=== PATIENT | female | born 1930 | race Caucasian/White ===

== ENCOUNTER 2017-04-17 11:41 | Observation (INO) ==
--- NOTE | 2017-04-17 11:54 | Emergency Department Note ---
Disposition Clinical Impression: Transient cerebral ischemia Disposition: Admitted As Inpatient Referrals: NO,PCP [Non-Partnered Physician] - Forms: ED Satisfaction Letter Neuro HPI - General Chief Complaint: ED Neuro Symptoms/Deficit Stated Complaint: slsurred speech Time Seen by Provider: 04/17/17 11:52 Source: patient Mode of arrival: EMS Limitations: no limitations Nursing Notes Reviewed: Yes Vital Signs Reviewed: Yes - History of Present Illness HPI Narrative: Patient states she has been recently treated for UTI with Cipro as she took her medication today she felt numbness in her face arms and legs she felt like she had some difficulty speaking. She called her doctor in the office opened and they recommended coming to the ER for evaluation for a stroke. The patient states the difficulty with speech has resolved but she still feels like her arms and legs are numb. She also complains of some mild nausea Quality: weakness, numbness Improves with: time Context: sudden onset Associated symptoms: Reports: loss of appetite. Denies: confusion, chest pain, fever/chills, headaches, shortness of breath Treatments Prior to Arrival: none - Related Data Home Medications: Home Medications Medication Instructions Recorded Confirmed Acetaminophen [Tylenol] 325 mg PO Q6HR PRN 04/14/16 04/14/16 Carvedilol [Coreg] 6.25 mg PO BIDWM 04/14/16 04/14/16 Ezetimibe [Zetia] 10 mg PO DAILY 04/14/16 04/14/16 Glimepiride [Amaryl] 2 mg PO DAILY 04/14/16 04/14/16 Irbesartan [Avapro] 150 mg PO DAILY 04/14/16 04/14/16 Isosorbide MONOnitrate (24 HR) 60 mg PO DAILY 04/14/16 04/14/16 [Imdur] Lansoprazole [Prevacid] 30 mg PO DAILY 04/14/16 04/14/16 SitaGLIPtin [Januvia] 100 mg PO DAILY 04/14/16 04/14/16 Travoprost [Travatan Z] 5 ml OP DAILY 04/14/16 04/14/16 Previous Rx's Medication Instructions Recorded Oxazepam [Serax] 15 mg PO TID #21 capsule 04/21/16 Zolpidem [Ambien] 5 mg PO HS PRN #7 tablet 04/21/16 Allergies/Adverse Reactions: Allergies Allergy/AdvReac Type Severity Reaction Status Date / Time Insulins Allergy See Verified 04/14/16 08:58 Comments Mhzfgeo-Zlh-Tfe Reductase Allergy Muscle Pain Verified 04/14/16 08:58 Inhibitor [Statins] acetaminophen [From Vicodin] AdvReac Nausea Verified 04/14/16 08:58 aspirin AdvReac See Verified 04/14/16 08:58 Comments clopidogrel [From Plavix] AdvReac See Verified 04/14/16 08:58 Comments hydrocodone [From Vicodin] AdvReac Nausea Verified 04/14/16 08:58 levofloxacin [From Levaquin] AdvReac Dizziness Verified 04/14/16 08:58 rivastigmine [From Exelon] AdvReac Nausea Verified 04/14/16 08:58 All systems ED: reviewed and negative except as stated. Gastrointestinal: Reports: nausea. Denies: abdominal pain, vomiting, diarrhea Neurological: Reports: numbness (Bilateral arms and legs), other (Patient had some slurred speech that she noticed earlier today but has resolved) Past Medical History - Past Medical History Source: patient, old records reviewed, nursing notes reviewed Medical history: Reports: diabetes, hypertension, TIA Surgical history: Reports: cataract, hysterectomy Psychiatric history: Reports: anxiety, depression - Social History Smoking Status: Never smoker Smokeless Tobacco Status: No Alcohol use: Reports: none Drug use: Reports: none Physical Exam - General Limitations: no limitations General appearance: alert, in no apparent distress - Head Head exam: atraumatic, normocephalic, normal inspection - Eye Eye exam: Present: normal appearance, PERRL, EOMI - Expanded Eye Exam Pupils: Left: reactive - ENT ENT exam: normal exam, normal oropharynx, mucous membranes moist - Expanded ENT Exam External ear exam: Present: normal external inspection Mouth exam: Present: normal external inspection Teeth exam: Present: normal inspection Throat exam: Present: normal inspection - Neck Neck exam: Present: normal inspection, full ROM, trachea midline - Chest Chest inspection: Present: normal inspection, symmetric chest wall rise - Respiratory Respiratory exam: Present: normal lung sounds bilaterally - Cardiovascular Cardiovascular exam: Present: regular rate, normal rhythm, normal heart sounds - Abdominal Exam Abdominal exam: Present: soft, Non-Tender. Absent: tenderness, distention, guarding, rebound, rigidity - Extremities Exam Extremities exam: Present: normal inspection, full ROM. Absent: tenderness, pedal edema - Expanded Upper Extremity Exam Shoulder exam: Present: normal inspection, full ROM Arm exam: Present: normal inspection, full ROM Elbow exam: Present: normal inspection, full ROM Forearm/Wrist exam: Present: normal inspection, full ROM Hand exam: Present: normal inspection, full ROM Vascular exam: Normal: capillary refill, radial pulse - Expanded Lower Extremity Exam Hip/Pelvis exam: Present: normal inspection, full ROM Upper leg exam: Present: normal inspection, full ROM Knee exam: Present: normal inspection, full ROM Lower leg exam: Present: normal inspection, full ROM Ankle exam: Present: normal inspection, full ROM Foot/toe exam: Present: normal inspection, full ROM Neurovascular/Tendon exam: Absent: motor deficit, sensory deficit, tendon deficit - Back Exam Back exam: Present: normal inspection, full ROM. Absent: tenderness - Neurological Exam Neurological exam: Present: alert, oriented X3 - Expanded Neurological Exam Patient oriented to: Present: person, place, time Coma Scale Eye Opening: Spontaneous Coma Scale Motor Response: Obeys Commands Coma Scale Verbal Response: Oriented Coma Scale Total: 15 - Psychiatric Psychiatric exam: Present: normal affect, normal mood - Skin Skin exam: Present: warm, dry, intact, normal color Course Vital Signs Temperature 98.7 F 04/17/17 12:14 Pulse Rate 102 04/17/17 12:14 Respiratory Rate 14 04/17/17 12:14 Blood Pressure 199/87 04/17/17 12:14 O2 Sat by Pulse Oximetry 96 04/17/17 12:14 Temperature 98.7 F 04/17/17 12:14 Pulse Rate 102 04/17/17 12:14 Respiratory Rate 14 04/17/17 12:14 Blood Pressure 205/93 04/17/17 12:14 O2 Sat by Pulse Oximetry 98 04/17/17 12:14 Oxygen Delivery Oxygen Delivery Room Air Neuro Symptoms/Deficit - Lab Data Result diagrams: 04/17/17 12:41 04/17/17 12:41 Lab Results 04/17/17 04/17/17 04/17/17 Range/Units 11:51 12:41 12:41 WBC 7.0 (4.3-11.1) K/mcL RBC 4.42 (3.82-4.97) M/mcL Hgb 10.5 L (11.5-15.4) g/dL Hct 33.9 L (35.3-44.9) % MCV 76.7 L (83.0-100.0) fL MCH 23.8 L (28.0-33.3) pg MCHC 31.0 L (31.6-35.5) g/dL RDW 17.0 H (11.5-14.5) % Plt Count 310 (140-400) K/mcL MPV 8.8 L (9.4-12.4) fL Immature Gran % 0.6 (0-4) % Seg Neutrophils % 81.7 % Lymphocytes % 10.0 % Monocytes % 7.0 % Eosinophils % 0.3 % Basophils % 0.4 % Neutrophils # 5.7 (1.6-8.9) K/mcL Lymphocytes # 0.7 (0.6-4.6) K/mcL Monocytes # 0.5 (0.0-1.3) K/mcL Eosinophils # 0.0 (0.0-0.6) K/mcL Basophils # 0.0 (0.0-0.2) K/mcL PT 10.9 (9.4-12.1) Seconds INR 1.0 APTT 25.6 L (26.0-36.0) Seconds Sodium (136-145) mEq/L Potassium (3.5-4.5) mEq/L Chloride (98-109) mEq/L Carbon Dioxide (19-29) mEq/L BUN (7-20) mg/dL Creatinine (0.57-1.11) mg/dL Est GFR ( Amer) (> 60) Est GFR (Non-Af Amer) (> 60) BUN/Creatinine Ratio (6-26) Glucose (70-99) mg/dL POC Glucose 198 H (58-89) Calculated Osmolality (280-300) Calcium (8.6-10.8) mg/dL Magnesium (1.6-2.6) mg/dL Troponin I (0-0.03) ng/mL TSH (0.350-4.840) mcIU/mL 04/17/17 04/17/17 Range/Units 12:41 12:41 WBC (4.3-11.1) K/mcL RBC (3.82-4.97) M/mcL Hgb (11.5-15.4) g/dL Hct (35.3-44.9) % MCV (83.0-100.0) fL MCH (28.0-33.3) pg MCHC (31.6-35.5) g/dL RDW (11.5-14.5) % Plt Count (140-400) K/mcL MPV (9.4-12.4) fL Immature Gran % (0-4) % Seg Neutrophils % % Lymphocytes % % Monocytes % % Eosinophils % % Basophils % % Neutrophils # (1.6-8.9) K/mcL Lymphocytes # (0.6-4.6) K/mcL Monocytes # (0.0-1.3) K/mcL Eosinophils # (0.0-0.6) K/mcL Basophils # (0.0-0.2) K/mcL PT (9.4-12.1) Seconds INR APTT (26.0-36.0) Seconds Sodium 132 L (136-145) mEq/L Potassium 4.7 H (3.5-4.5) mEq/L Chloride 98 (98-109) mEq/L Carbon Dioxide 21 (19-29) mEq/L BUN 18 (7-20) mg/dL Creatinine 0.83 (0.57-1.11) mg/dL Est GFR ( Amer) > 60 (> 60) Est GFR (Non-Af Amer) > 60 (> 60) BUN/Creatinine Ratio 22 (6-26) Glucose 188 H (70-99) mg/dL POC Glucose (58-89) Calculated Osmolality 281 (280-300) Calcium 9.7 (8.6-10.8) mg/dL Magnesium 1.4 L (1.6-2.6) mg/dL Troponin I 0.00 (0-0.03) ng/mL TSH 2.277 (0.350-4.840) mcIU/mL TPA Checklist - LKW: 3-4.5 hrs Add. Warnings/Precautions Patient/family understanding: The patient/family members have been counseled and understood the risk, benefit , and alternatives of treatment.
[2017-04-17 12:52] LABS: Basophils % 0.4 %; Eosinophils % 0.3 %; Hematocrit 33.9 % (35.3-44.9); Hemoglobin 10.5 g/dL (11.5-15.4); Immature Granulocytes % 0.6 % (0-4); Lymphocytes # 0.7 K/mcL (0.6-4.6); Mean Corpuscular Hemoglobin 23.8 pg (28.0-33.3); Mean Corpuscular Volume 76.7 fL (83.0-100.0); Mean Platelet Volume 8.8 fL (9.4-12.4); Monocytes # 0.5 K/mcL (0.0-1.3); Neutrophils # 5.7 K/mcL (1.6-8.9); Platelet Count 310 K/mcL (140-400); Red Blood Count 4.42 M/mcL (3.82-4.97); Segmented Neutrophils % 81.7 %
[2017-04-17 12:58] LABS: Prothrombin Time 10.9 Seconds (9.4-12.1)
[2017-04-17 13:00] LABS: Activated Partial Thrombo Time 25.6 Seconds (26.0-36.0)
[2017-04-17 13:01] LABS: BUN/Creatinine Ratio 22 (6-26); Blood Urea Nitrogen 18 mg/dL (7-20); Calcium 9.7 mg/dL (8.6-10.8); Carbon Dioxide 21 mEq/L (19-29); Chloride 98 mEq/L (98-109); Glucose 188 mg/dL (70-99); Magnesium 1.4 mg/dL (1.6-2.6); Osmolality,Calculated 281 (280-300); Potassium 4.7 mEq/L (3.5-4.5); Sodium 132 mEq/L (136-145); eGFR For African Americans > 60 (> 60); eGFR For Non-African Americans > 60 (> 60)
[2017-04-17 13:23] LABS: Thyroid Stimulating Hormone 2.277 mcIU/mL (0.350-4.840)
[2017-04-17 14:25] LABS: Bilirubin,Urine Negative (Negative); Blood,Urine Negative (Negative); Clarity,Urine Clear (Clear); Color,Urine Yellow (Yellow); Glucose,Urine (UA) 250 mg/dL (Normal); Ketones,Urine Trace mg/dL (Negative); Leukocyte Esterase,Urine Negative (Negative); Nitrite,Urine Negative (Negative); Protein,Urine Negative (Neg-Trace); Specific Gravity,Urine 1.011 (1.010-1.025); Urobilinogen,Urine Normal (Normal)
[2017-04-17] MEDS ORDERED: amLODIPine 5 MG TABLET PO STA (14:37)
[2017-04-17] MEDS ORDERED: Naloxone 0.4 MG/ML INJ IVP PRN (17:39)
--- NOTE | 2017-04-17 18:15 | Internal Med History&Physical ---
Date of Encounter: 04/17/17 Time of Encounter: 18:04 Assessment and Plan (1) Transient cerebral ischemia Current visit: Yes Status: Suspected 1 patient had sudden onset of numbness and tingling in hands bilaterally and left side of face as well as difficulty speaking. Dysarthria lasted for approximate 45 minutes and resolved as well as the numbness in her face however she continues to experience some tingling in her hands bilaterally. Neurologically she is intact. She does have risk factors of diabetes hypertension past history of TIA. Patient is not on any aspirin, Plavix or statin due to allergies. She states she is unable take aspirin or Plavix due to hematuria and statin because of myalgias. CT of head was negative for any intracranial abnormalities. We will obtain an MRI 2 cardiac echo 04/2016 showed EF of 60% with normal left and right ventricular function. Presently in sinus rhythm 3 we will obtain Doppler of carotids 4 lipid profile 5 she did pass her spell bedside swallow 6 PT OT for a evaluation 7 continuous cardiac monitoring 8 continue neuro checks 9 consult neurology as needed Qualifiers: Transient cerebral ischemia type: unspecified Qualified Code(s): G45.9 - Transient cerebral ischemic attack, unspecified (2) Anxiety Current visit: No Status: Chronic 1 continue with home medications (3) T2DM (type 2 diabetes mellitus) Current visit: No Status: Chronic 1 patient states she is allergic to insulin in that she cannot take it we will continue with her oral medications for now Accu-Cheks before meals and at bedtime 2 diabetic diet Qualifiers: Diabetes mellitus complication status: without complication Diabetes mellitus chcf insulin use: without terminal system operator use Qualified Code(s): E11.9 - Type 2 diabetes mellitus without complications (4) DVT prophylaxis Current visit: No Status: Acute 1 RAMBO monicoluis daniel Internal Medicine - H&P: HPI Chief complaint: Dysarthria Admitted From: Emergency Dept Plans for Post Hospital Care: Home History of present illness: Ms. Lamb is a 86 year old female past uncle history of diabetes hypertension TIA glaucoma anxiety. According to the patient this morning she got up went about her daily routine took her morning medications and began to experience some numbness to her left side her face and numbness and tingling to both sides of hands. She was talking to a friend on her phone and noticed she was having difficulty speaking. The dysarthria lasted approximately 30-45 minutes and then resolved on its own. She called her primary care physician who did called 911. Patient was transported to the ER for further evaluation. Upon arrival patient was tachycardic as well as hypertensive with a blood pressure of 199/87 to continue to elevate up to 200 systolic and 100 diastolic. She denied any chest pain or shortness of breath she was neurologically intact. CT of head was obtained which was negative for any intracranial abnormalities. Lab work was unremarkable except for a magnesium of 1.4. She has been admitted for further workup and observation. Presently patient is alert oriented appropriate following simple commands, nerves II through XII are intact equal strength in all 4 extremities lung sounds are clear heart sounds S1 and S2 with no rubs or clicks Gallops or murmurs noted. EKG sinus rhythm no ST-T wave abnormalities noted Abdomen soft nontender no pedal edema noted. Presently she is hemodynamically stable I reviewed this case with who agrees with plan Past Med Surg Social Fam HX - Past Medical History Medical history: diabetes, hypertension, TIA Psychiatric history: anxiety, depression - Past Surgical History Surgical History: cataract, hysterectomy - Social History Smoking Status: Never smoker Smokeless Tobacco Status: No Alcohol use: none Drug use: none - Family History Mother Living Status: Age at : 81 Cause of : Diabetes Father Living Status: Age at : 89 Cause of : Unknown Internal Medicine - H&P: Meds Acetaminophen [Tylenol] 325 mg PO Q6HR PRN 04/14/16 [History] Glimepiride [Amaryl] 2 mg PO DAILY 04/14/16 [History] Isosorbide MONOnitrate (24 HR) [Imdur] 60 mg PO DAILY 04/14/16 [History] Lansoprazole [Prevacid] 30 mg PO DAILY 04/14/16 [History] SitaGLIPtin [Januvia] 100 mg PO DAILY 04/14/16 [History] Travoprost [Travatan Z] 5 ml OP DAILY 04/14/16 [History] Oxazepam [Serax] 15 mg PO TID #21 capsule 04/21/16 [Rx] Amlodipine Besylate 2.5 mg PO DAILY 04/17/17 [History] Ciprofloxacin HCl [Cipro] 500 mg PO BID 04/17/17 [History] Docusate [Colace] 100 mg PO BID PRN 04/17/17 [History] Pioglitazone [Actos] 15 mg PO DAILY 04/17/17 [History] Polyethylene Glycol 3350 [MiraLAX] 17 gm PO DAILY 04/17/17 [History] metFORMIN [Glucophage] 1,000 mg PO BIDWM 04/17/17 [History] Allergies Insulins Allergy (Verified 04/14/16 08:58) See Comments "could not move" Flcigmj-Hgb-Hmi Reductase Inhibitor [Statins] Allergy (Verified 04/14/16 08:58) Muscle Pain acetaminophen [From Vicodin] Adverse Reaction (Verified 04/14/16 08:58) Nausea aspirin Adverse Reaction (Verified 04/14/16 08:58) See Comments bleeding clopidogrel [From Plavix] Adverse Reaction (Verified 04/14/16 08:58) See Comments bleeding hydrocodone [From Vicodin] Adverse Reaction (Verified 04/14/16 08:58) Nausea levofloxacin [From Levaquin] Adverse Reaction (Verified 04/14/16 08:58) Dizziness rivastigmine [From Exelon] Adverse Reaction (Verified 04/14/16 08:58) Nausea All Systems PM: A 10-system review of systems was performed and is negative for pertinent findings except as documented above in the HPI. - Constitutional Constitutional: no chills, no fever(s), no night sweats - EENT Eyes: no change in vision, no discharge, no pain, no photophobia Ears: no ear discharge, no ear pain, no tinnitus Nose, mouth and throat: no dysphagia, no nasal discharge, no neck pain, no sore throat - Cardiovascular Cardiovascular ROS IM: no chest pain, no diaphoresis, no dyspnea, no lightheadedness, no palpitations, no syncope - Respiratory Respiratory: no cough, no dyspnea, no wheezing, no excessive phlegm production - Gastrointestinal Gastrointestinal: no abdominal pain, no diarrhea, no hematemesis, no hematochezia, no melena, no nausea, no vomiting - Genitourinary Genitourinary: no change in urinary stream, no dysuria, no flank pain, no hematuria - Musculoskeletal Musculoskeletal ROS IM: no numbness, no tingling - Integumentary Integumentary IM: no rash, no unusual bruising - Neurological Neurological ROS: frequent falls, no confusion, no convulsions, no focal weakness, no numbness, no tingling, no tremor(s) - Hematologic/Lymphatic Hematologic/Lymphatic: no easy bruising - Constitutional Vitals: Temp Pulse Resp BP Pulse Ox 99.0 F 88 15 152/72 96 04/17/17 17:06 04/17/17 17:06 04/17/17 17:06 04/17/17 17:06 04/17/17 17:06 General appearance: Present: A&O X 3, answers questions appropriately - Head Head exam: Present: atraumatic, normocephalic - Eye Eye exam: Present: PERRL, conjuntiva pink, sclera anicteric Pupils: Present: PERRL - Neck Neck exam general surgery: Present: supple, trachea midline. Absent: lymphadenopathy - Respiratory Respiratory exam: Present: CTAB. Absent: accessory muscle use, rales, rhonchi, wheezes - Cardiovascular Cardiovascular exam: Present: RRR, +S1, +S2. Absent: diastolic murmur, gallop, rubs, systolic murmur - GI/Abdominal GI/Abdominal exam: Present: normal bowel sounds, soft, no peritoneal signs. Absent: distended, tenderness - Extremities Exam Extremities exam: Present: warm, radial pulses palpable and symetrical. Absent : calf tenderness, cyanotic, pedal edema - Neurological Exam Neurological exam: Present: CN II-XII intact, oriented X3, no focal deficits. Absent: pronater drift, facial droop, speech deficit - Skin Skin exam: Present: dry, intact Internal Med - H&P Results - Labs CBC & Chem 7: 04/17/17 12:41 04/17/17 12:41 - EKG Data EKG shows normal: sinus rhythm - EKG Data Interpretation IM: normal EKG - Diagnostic Studies Other Images Additional comments: Head CT 04/17/17 11:52 IMPRESSION: No acute intracranial abnormality. D/ / Pal Arroyo MD / Pal Arroyo MD Interpreting Provider: Pal Arroyo MD
[2017-04-17] MEDS ORDERED: Magnesium Sulfate 2 GM in D5% in Water 100 ML IVPB ONE (18:34)
[2017-04-17] MEDS ORDERED: Dextrose Gel 15 GM PO PRN ×2 (18:56)
[2017-04-17] MEDS ORDERED: D5% in Water 1,000 ML IVC PRN (18:56)
[2017-04-17] MEDS ORDERED: *HR* Dextrose 50 % in Water (Syg) 50 ML SYRINGE IVP PRN (18:56)
[2017-04-18 00:53] LABS: Basophils % 0.4 %; Eosinophils # 0.1 K/mcL (0.0-0.6); Eosinophils % 1.8 %; Hematocrit 35.8 % (35.3-44.9); Immature Granulocytes % 0.3 % (0-4); Lymphocytes # 1.8 K/mcL (0.6-4.6); Lymphocytes % 26.1 %; Mean Corpuscular HGB Conc 30.7 g/dL (31.6-35.5); Mean Corpuscular Hemoglobin 23.4 pg (28.0-33.3); Mean Platelet Volume 10.3 fL (9.4-12.4); Monocytes # 0.9 K/mcL (0.0-1.3); Monocytes % 13.5 %; Platelet Count 286 K/mcL (140-400); Red Blood Count 4.71 M/mcL (3.82-4.97); Red Cell Distribution Width 17.3 % (11.5-14.5); Segmented Neutrophils % 57.9 %
[2017-04-18 01:07] LABS: BUN/Creatinine Ratio 15 (6-26); Blood Urea Nitrogen 13 mg/dL (7-20); Calcium 9.6 mg/dL (8.6-10.8); Carbon Dioxide 28 mEq/L (19-29); Chloride 99 mEq/L (98-109); Glucose 171 mg/dL (70-99); Magnesium 2.4 mg/dL (1.6-2.6); Osmolality,Calculated 284 (280-300); Sodium 135 mEq/L (136-145); eGFR For African Americans > 60 (> 60); eGFR For Non-African Americans > 60 (> 60)
[2017-04-18 01:14] LABS: Potassium 3.6 mEq/L (3.5-4.5)
--- NOTE | 2017-04-18 07:29 | Carotid Imaging Report ---
Carotid Duplex Patient Name:Divya Lamb March Order Number:[id number] Procedure Date:04/17/2017 Date:1930ge:86 yrs Gender:Female Rt.BP:174 / 77 mmHgHeart Rate: Location:[facility] Room #: 3B52 Outsole Caser:Charlene Godfrey RVT Referring MD:Magaly Carpio CNP review engineer:Tyrone Coello MD Reading MD:Bishop Watson MD Primary Indications:Dysarthria Risk Factors Yes/No Hypertension Yes Diabetes Yes Hx of TIA Yes Impressions: The bilateral carotid arteries have minimal plaque throughout. Findings Carotid Duplex: Right: There is nonstenotic plaque in the right bifurcation. There is smooth heterogeneous plaque. There is nonstenotic plaque in the right proximal internal carotid artery. There is smooth heterogeneous plaque. Left: There is nonstenotic plaque in the left bifurcation. There is smooth heterogeneous plaque. There is nonstenotic plaque in the left proximal internal carotid artery. There is smooth heterogeneous plaque. Prior Study: No prior study available for comparison. Carotid Results Right PSV EDV Assessment Proximal CCA 69 9 Normal Mid CCA 80 14 Normal Distal CCA 79 15 Normal Bifurcation 78 11 Non Stenotic Plaque Proximal ICA 103 25 Non Stenotic Plaque Mid ICA 84 17 Normal Distal ICA 76 19 Normal ECA 201 11 Normal Vertebral Artery 47 7 Antegrade Flow Left PSV EDV Assessment Proximal CCA 64 7 Normal Mid CCA 59 6 Normal Distal CCA 64 6 Normal Bifurcation 56 6 Non Stenotic Plaque Proximal ICA 72 16 Non Stenotic Plaque Mid ICA 80 14 Normal Distal ICA 66 12 Normal ECA 101 9 Normal Vertebral Artery 42 5 Antegrade Flow Ratio's Right ICA/CCA Ratio: 1.28 ICA/CCA Values: 103/80 Left ICA/CCA Ratio: 1.35 ICA/CCA Values: 80/59 Updated by Bishop Watson MD on 04/18/2017 7:22:12 AM electronically signed on 04/18/2017 7:22:39 AM with status of Final
[2017-04-18] MEDS ORDERED: *HR* Metformin 500 MG TABLET PO SCH (08:00)
[2017-04-18] MEDS ORDERED: amLODIPine 5 MG TABLET PO SCH ×3 (09:00)
[2017-04-18] MEDS ORDERED: *HR* Pioglitazone 15 MG TABLET PO SCH (09:00)
[2017-04-18] MEDS ORDERED: *HR* SitaGLIPtin 100 MG TABLET PO SCH (09:00)
[2017-04-18] MEDS ORDERED: *HR* Glimepiride 2 MG TABLET PO SCH (09:00)
[2017-04-18] MEDS ORDERED: Isosorbide MONOnitrate (24 HR) 60 MG TAB.ER.24H PO SCH (09:00)
[2017-04-18 11:04] VITALS: BP 174/97
--- NOTE | 2017-04-18 11:58 | Discharge Summary ---
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(s): G45.1 - Carotid artery syndrome (hemispheric) (2) Anxiety Priority: Secondary Status: Chronic (3) T2DM (type 2 diabetes mellitus) Priority: Secondary Status: Chronic Qualifiers: Diabetes mellitus complication status: with circulatory complication Diabetes mellitus complication detail: with other circulatory complications Diabetes mellitus assisted insulin use: without assisted use Qualified Code( s): E11.59 - Type 2 diabetes mellitus with other circulatory complications - Discharge Medications Home Medications: Acetaminophen [Tylenol] 325 mg PO Q6HR PRN 04/14/16 [History] Glimepiride [Amaryl] 2 mg PO DAILY 04/14/16 [History] Isosorbide MONOnitrate (24 HR) [Imdur] 60 mg PO DAILY 04/14/16 [History] Lansoprazole [Prevacid] 30 mg PO DAILY 04/14/16 [History] SitaGLIPtin [Januvia] 100 mg PO DAILY 04/14/16 [History] Travoprost [Travatan Z] 1 drop LEFT EYE DAILY 04/14/16 [History] Oxazepam [Serax] 15 mg PO TID #21 capsule 04/21/16 [Rx] Amlodipine Besylate 2.5 mg PO DAILY 04/17/17 [History] Ciprofloxacin HCl [Cipro] 500 mg PO BID 04/17/17 [History] Docusate [Colace] 100 mg PO BID PRN 04/17/17 [History] Pioglitazone [Actos] 15 mg PO DAILY 04/17/17 [History] Polyethylene Glycol 3350 [MiraLAX] 17 gm PO DAILY 04/17/17 [History] metFORMIN [Glucophage] 1,000 mg PO BIDWM 04/17/17 [History] Allergies/Adverse Reactions: Allergies Insulins Allergy (Verified 04/14/16 08:58) See Comments "could not move" Nlwnjez-Gla-Ioj Reductase Inhibitor [Statins] Allergy (Verified 04/14/16 08:58) Muscle Pain acetaminophen [From Vicodin] Adverse Reaction (Verified 04/14/16 08:58) Nausea aspirin Adverse Reaction (Verified 04/14/16 08:58) See Comments bleeding clopidogrel [From Plavix] Adverse Reaction (Verified 04/14/16 08:58) See Comments bleeding hydrocodone [From Vicodin] Adverse Reaction (Verified 04/14/16 08:58) Nausea levofloxacin [From Levaquin] Adverse Reaction (Verified 04/14/16 08:58) Dizziness rivastigmine [From Exelon] Adverse Reaction (Verified 04/14/16 08:58) Nausea Procedures/tests Complete & Pending: Procedures Performed prior 72 hours Category Date Time Status MR head/brain wo con [MR] Routine MRI 04/17/17 18:16 Completed ECG 12 lead ECG [ECG] Stat Y 04/17/17 17:39 Ordered EV carotid duplex imaging BI Routine Y 04/17/17 17:48 Completed EV echo with saline Routine Y 04/18/17 11:03 Stop Req Date of admission: 04/17/17 14:43 Primary care physician: Tyrone Coello MD Discharging clinician: Bola Butterfield Anticipated date of discharge: 04/18/17 - Patient Status Disposition: Home, Self-Care Condition: Fair Functional capacity at discharge: uses cane/walker Overall status at discharge: patient is back to baseline - Discharge Instructions Follow Up With: Tyrone Coello MD [Primary Care Provider] - - Diet and Activity Activity: increase activity as tolerated Diet: diabetic diet, low fat, low cholesterol, low salt diet Hospital course: Ms. Lamb is a 86 year old female with history of type 2 diabetes mellitus who presented to the emergency room due to swelling of the speech, facial numbness, paresthesias and weakness in hands and fingers. Her symptoms had resolved by the time of admission. The patient was placed under observation and underwent carotid Dopplers. Carotid Dopplers revealed bilateral minimal plaque. MRI of the brain did not reveal any acute infarct. The patient states that she is allergic to aspirin and Plavix as a cause her to have bleeding and hence, her primary care physician had instructed her to not take either medication. She states that statins cause her to have pains from her hips down to her feet. Hence, she does not want to take those medications. After extended discussion about the risks and benefits of taking aspirin, Plavix and statin, the patient understands that she is at increased risk of stroke by not taking any of these medications. However, she states that by taking these medications her quality of life will be diminished. Hence, she chooses not to take these medications at the risk of increased risk of stroke. As the patient's symptoms have resolved and she does not require any physical therapy or occupational therapy at home, she has been deemed stable to be discharged back home. - Time Spent with Patient Total time spent providing and/or coordinating discharge services: - Constitutional Vitals: Temp Pulse Resp BP Pulse Ox 98.7 F 110 14 174/97 95 04/18/17 11:03 04/18/17 11:03 04/18/17 11:03 04/18/17 11:03 04/18/17 11:03 General appearance: Present: A&O X 3, answers questions appropriately Exam: Gen.: Lying in bed. No acute distress. Chest: Clear to auscultation bilaterally. No adventitious sounds present. CVS: First and second heart sounds present. No murmurs, rubs or gallops.
[2017-04-18] MEDS ORDERED: Latanoprost 2.5 ML BOTTLE LEFT EYE SCH (18:00)
--- NOTE | 2017-04-20 06:18 | Electrocardiograph Report ---
[address] [address] Test Date: 2017-04-17 Pat Name: Divya Lamb Department: 102 Room: 3B Gender: F Shake Cutter: [facility] : 1930 Requested By: Bola Butterfield Order Number: [id number] Reading MD: Rahdames Dahl MD Measurements Intervals [place] Rate: 110 P: 26 NH: 112 QRS: 34 QRSD: 85 T: 62 QT: 332 QTc: 397 Interpretive Statements SINUS TACHYCARDIA WITH SHORT NH INTERVAL Electronically Signed On 04-20-2017 6:16:53 EDT by Radhames Dahl MD
--- NOTE | 2017-04-20 06:49 | Electrocardiograph Report ---
[address] [address] Test Date: 2017-04-17 Pat Name: Divya Lamb Department: 113 Room: [facility] Gender: F Decaler: [id number] : 1930 Requested By: Magaly Carpio Order Number: [id number] Reading MD: Radhames Dahl MD Measurements Intervals [place]: 84 P: 41 MT: 164 QRS: 24 QRSD: 86 T: 35 QT: 375 QTc: 415 Interpretive Statements SINUS RHYTHM Electronically Signed On 04-20-2017 6:47:26 EDT by Radhames Dahl MD
== END 2017-04-18 15:02 | disposition home or self-care (01) ==
LOC: 3BNU 11:41 → EMEROO 11:41 → SUATTDRO 14:43 → 3BNU 16:45
PROVIDERS: ADMIT Internal Medicine; ATTEND Internal Medicine Sleep Medicine

== ENCOUNTER 2019-09-22 01:10 | Observation (INO) ==
[2019-09-22 01:48] LABS: Bilirubin,Urine Negative (Negative); Blood,Urine Negative (Negative); Clarity,Urine Clear (Clear); Color,Urine Yellow (Yellow); Glucose,Urine (UA) 100 mg/dL (Normal); Ketones,Urine Negative (Negative); Leukocyte Esterase,Urine Negative (Negative); Nitrite,Urine Negative (Negative); Protein,Urine Negative (Neg-Trace); Urobilinogen,Urine Normal (Normal)
[2019-09-22 01:53] LABS: Basophils % 0.6 %; Eosinophils # 0.2 K/mcL (0.0-0.6); Hematocrit 34.5 % (35.3-44.9); Hemoglobin 11.1 g/dL (11.5-15.4); Immature Granulocytes % 0.8 % (0-4); Lymphocytes # 1.4 K/mcL (0.6-4.6); Lymphocytes % 21.6 %; Mean Corpuscular HGB Conc 32.2 g/dL (31.6-35.5); Mean Corpuscular Hemoglobin 25.2 pg (28.0-33.3); Mean Corpuscular Volume 78.2 fL (83.0-100.0); Mean Platelet Volume 8.9 fL (9.4-12.4); Monocytes % 14.5 %; Neutrophils # 3.9 K/mcL (1.6-8.9); Platelet Count 350 K/mcL (140-400); Red Blood Count 4.41 M/mcL (3.82-4.97); Red Cell Distribution Width 16.8 % (11.5-14.5); Segmented Neutrophils % 59.5 %; White Blood Count 6.6 K/mcL (4.3-11.1)
[2019-09-22 01:57] LABS: INR 0.9; Prothrombin Time 10.1 Seconds (9.4-12.1)
[2019-09-22 02:00] LABS: Activated Partial Thrombo Time 29.6 Seconds (26.0-36.0)
[2019-09-22 02:14] LABS: BUN/Creatinine Ratio 21 (6-26); Blood Urea Nitrogen 15 mg/dL (8-23); Calcium 9.9 mg/dL (8.6-10.3); Carbon Dioxide 27 mEq/L (23-29); Chloride 93 mEq/L (98-107); Glucose 165 mg/dL (70-105); Osmolality,Calculated 281 (280-300); Sodium 133 mEq/L (136-145); Troponin I < 0.03 ng/mL (< 0.04); eGFR For African Americans > 60 (> 60); eGFR For Non-African Americans > 60 (> 60)
[2019-09-22] MEDS ORDERED: Magnesium Oxide 400 MG TABLET PO ONE (03:30)
[2019-09-22] MEDS ORDERED: Oxymetazoline Nasal SPRAY BOTTLE NS PRN (09:03)
[2019-09-22] MEDS ORDERED: Nitroglycerin 0.4 MG TAB.SUBL SL PRN (09:11)
[2019-09-22] MEDS ORDERED: *HR* Dextrose 50 % in Water (Syg) 50 ML SYRINGE IVP PRN (09:19)
[2019-09-22] MEDS ORDERED: Dextrose Gel 15 GM/37.5 ML TUBE PO PRN ×2 (09:19)
[2019-09-22] MEDS ORDERED: D5% in Water 1,000 ML IVC PRN (09:19)
[2019-09-22] MEDS ORDERED: Acetaminophen 325 MG TABLET PO PRN (12:56)
[2019-09-22] MEDS ORDERED: *HR* LORazepam 0.5 MG TABLET PO PRN (13:06)
[2019-09-22] MEDS ORDERED: cloNIDine HCl 0.1 MG TABLET PO PRN (13:06)
[2019-09-22] MEDS ORDERED: Melatonin 3 MG TABLET PO PRN (13:06)
[2019-09-22] MEDS ORDERED: Cyanocobalamin (B-12) 1,000 MCG/ML VIAL IM SCH (13:15)
[2019-09-22] MEDS ORDERED: *HR* Metoprolol 5 MG/5 ML VIAL IVP ONE (13:25)
[2019-09-22] MEDS: GlipiZIDE 5 MG TABLET PO SCH ×2 (13:29→16:08)
[2019-09-22] MEDS ORDERED: NON-FORMULARY MEDICATION 1 EACH EACH (Brimonidine Tartrate/Timolol [Combigan 0.2%-0.5% Eye BOTH EYES SCH (19:00)
[2019-09-22] MEDS ORDERED: Latanoprost 2.5 ML BOTTLE BOTH EYES SCH (19:00)
[2019-09-22] MEDS ORDERED: (Netarsudil Mesylate [Rhopressa] 1 DROP) OP SCH (19:00)
[2019-09-23] MEDS ORDERED: Regadenoson 0.4 MG/5 ML SYRINGE IVP ONE (06:33)
[2019-09-23 07:02] LABS: Basophils % 0.5 %; Eosinophils # 0.2 K/mcL (0.0-0.6); Eosinophils % 2.6 %; Hematocrit 34.7 % (35.3-44.9); Hemoglobin 10.9 g/dL (11.5-15.4); Immature Granulocytes % 0.5 % (0-4); Lymphocytes # 1.6 K/mcL (0.6-4.6); Lymphocytes % 27.3 %; Mean Corpuscular HGB Conc 31.4 g/dL (31.6-35.5); Mean Corpuscular Hemoglobin 25.3 pg (28.0-33.3); Mean Corpuscular Volume 80.5 fL (83.0-100.0); Monocytes # 0.9 K/mcL (0.0-1.3); Monocytes % 14.9 %; Neutrophils # 3.1 K/mcL (1.6-8.9); Platelet Count 298 K/mcL (140-400); Red Blood Count 4.31 M/mcL (3.82-4.97); Red Cell Distribution Width 17.2 % (11.5-14.5); Segmented Neutrophils % 54.2 %; White Blood Count 5.7 K/mcL (4.3-11.1)
[2019-09-23 07:11] LABS: Prothrombin Time 11.4 Seconds (9.4-12.1)
[2019-09-23 07:31] LABS: Alanine Aminotransferase 8 Units/L (7-52); Albumin/Globulin Ratio 1.5 (1.1-2.2); Alkaline Phosphatase 54 Units/L (34-104); Aspartate Amino Transferase 11 Units/L (13-39); BUN/Creatinine Ratio 22 (6-26); Bilirubin,Total 0.3 mg/dL (0.3-1.0); Blood Urea Nitrogen 19 mg/dL (8-23); Calcium 9.6 mg/dL (8.6-10.3); Carbon Dioxide 26 mEq/L (23-29); Chloride 94 mEq/L (98-107); Globulin 2.7 g/dL (2.4-3.5); Glucose 236 mg/dL (70-105); Magnesium 1.6 mg/dL (1.6-2.6); Osmolality,Calculated 290 (280-300); Potassium 3.9 mEq/L (3.5-5.1); Sodium 135 mEq/L (136-145); Total Protein 6.7 g/dL (6.4-8.9); eGFR For African Americans > 60 (> 60); eGFR For Non-African Americans > 60 (> 60)
[2019-09-23] MEDS ORDERED: amLODIPine 5 MG TABLET PO SCH (08:00)
[2019-09-23] MEDS: GlipiZIDE 5 MG TABLET PO SCH (10:55)
[2019-09-23 11:12] VITALS: BP 167/93
== END 2019-09-23 13:08 | disposition home or self-care (01) ==
LOC: CDU 01:10 → EMEROOARM 01:10 → SUATTDRO 05:14 → CDU 06:02 → 3ANU 15:20
PROVIDERS: ADMIT Family Medicine; ATTEND Family Medicine

== ENCOUNTER 2019-12-05 13:41 | Observation (INO) ==
[2019-12-05 14:23] LABS: Bilirubin,Urine Small (Negative); Blood,Urine Small (Negative); Clarity,Urine Turbid (Clear); Color,Urine Dark Yellow (Yellow); Glucose,Urine (UA) 500 mg/dL (Normal); Ketones,Urine 15 mg/dL (Negative); Leukocyte Esterase,Urine Moderate (Negative); Nitrite,Urine Positive (Negative); PH,Urine 5.5 pH Units (5.0-8.0); Protein,Urine 30 mg/dL (Neg-Trace); Urobilinogen,Urine Normal (Normal)
[2019-12-05 14:25] LABS: Bacteria,Urine Many per hpf (None-Few); Hyaline Casts,Urine None Seen per lpf (None-Few); Squamous Epithelial Cell,Urine Many per lpf (None-Few); WBC,Urine 15-30 per hpf (0-3)
[2019-12-05] MEDS ORDERED: Piperacillin/Tazobactam 3.375 GM in 0.9 % Sodium Chloride Mini Bag 100 ML IVPB ONE (14:25)
[2019-12-05 14:37] LABS: Amorphous Sediment,Urine Many per hpf (Few); RBC,Urine 0-3 per hpf (0-3)
[2019-12-05 14:43] LABS: Basophils % 0.3 %; Eosinophils # 0.2 K/mcL (0.0-0.6); Eosinophils % 3.3 %; Hematocrit 34.7 % (35.3-44.9); Hemoglobin 10.6 g/dL (11.5-15.4); Immature Granulocytes % 0.6 % (0-4); Lymphocytes # 0.4 K/mcL (0.6-4.6); Lymphocytes % 6.8 %; Mean Corpuscular HGB Conc 30.5 g/dL (31.6-35.5); Mean Corpuscular Hemoglobin 25.2 pg (28.0-33.3); Mean Corpuscular Volume 82.4 fL (83.0-100.0); Mean Platelet Volume 8.9 fL (9.4-12.4); Monocytes # 0.8 K/mcL (0.0-1.3); Monocytes % 13.1 %; Neutrophils # 4.8 K/mcL (1.6-8.9); Platelet Count 268 K/mcL (140-400); Red Blood Count 4.21 M/mcL (3.82-4.97); Red Cell Distribution Width 18.6 % (11.5-14.5); Segmented Neutrophils % 75.9 %; White Blood Count 6.3 K/mcL (4.3-11.1)
[2019-12-05 15:07] LABS: BUN/Creatinine Ratio 20 (6-26); Blood Urea Nitrogen 17 mg/dL (8-23); Calcium 9.9 mg/dL (8.6-10.3); Carbon Dioxide 25 mEq/L (23-29); Chloride 95 mEq/L (98-107); Glucose 247 mg/dL (70-105); Osmolality,Calculated 282 (280-300); Potassium 4.6 mEq/L (3.5-5.1); Sodium 131 mEq/L (136-145); eGFR For African Americans > 60 (> 60); eGFR For Non-African Americans > 60 (> 60)
[2019-12-05] MEDS ORDERED: 0.9 % Sodium Chloride 1,000 ML IVC SCH (17:30)
[2019-12-05] MEDS ORDERED: Acetaminophen 325 MG TABLET PO PRN (17:30)
[2019-12-05] MEDS ORDERED: Naloxone 0.4 MG/ML INJ IVP PRN (17:30)
[2019-12-05] MEDS ORDERED: *HR* LORazepam 0.5 MG TABLET PO PRN (17:32)
[2019-12-05] MEDS ORDERED: (Melatonin 1 MG) PO PRN (17:32)
[2019-12-05] MEDS ORDERED: cloNIDine HCL 0.1 MG TABLET PO PRN (17:32)
[2019-12-05] MEDS ORDERED: Dextrose Gel 15 GM/37.5 ML TUBE PO PRN ×2 (17:35)
[2019-12-05] MEDS ORDERED: D5% in Water 1,000 ML IVC PRN (17:35)
[2019-12-05] MEDS ORDERED: *HR* Dextrose 50 % in Water (Syg) 50 ML SYRINGE IVP PRN (17:35)
[2019-12-05] MEDS ORDERED: Cyanocobalamin (B-12) 1,000 MCG/ML VIAL IM SCH (17:45)
[2019-12-05] MEDS ORDERED: amLODIPine 5 MG TABLET PO ONE (18:00)
[2019-12-05] MEDS ORDERED: (Netarsudil Mesylate [Rhopressa] 1 DROP) OP SCH (19:00)
[2019-12-05] MEDS ORDERED: Latanoprost 2.5 ML BOTTLE BOTH EYES SCH (21:00)
[2019-12-05] MEDS: Ampicillin 1,000 MG in 0.9 % Sodium Chloride Mini Bag 100 ML IVPB SCH ×2 (22:26→23:52)
[2019-12-05] MEDS: *HR* Heparin 5,000 UNIT/ML VIAL SQ SCH (22:27)
[2019-12-05] MEDS: Cefepime HCl 1,000 MG in Water for inj. (sterile) 10 ML IVP SCH (22:34)
[2019-12-06] MEDS: Ampicillin 1,000 MG in 0.9 % Sodium Chloride Mini Bag 100 ML IVPB SCH (05:38)
[2019-12-06] MEDS: Cefepime HCl 1,000 MG in Water for inj. (sterile) 10 ML IVP SCH (05:39)
[2019-12-06] MEDS: *HR* Heparin 5,000 UNIT/ML VIAL SQ SCH (05:39)
[2019-12-06 06:25] LABS: Eosinophils # 0.2 K/mcL (0.0-0.6); Hematocrit 32.7 % (35.3-44.9); Hemoglobin 10.1 g/dL (11.5-15.4); Mean Corpuscular HGB Conc 30.9 g/dL (31.6-35.5); Mean Corpuscular Hemoglobin 25.4 pg (28.0-33.3); Mean Corpuscular Volume 82.2 fL (83.0-100.0); Mean Platelet Volume 9.1 fL (9.4-12.4); Platelet Count 234 K/mcL (140-400); Red Blood Count 3.98 M/mcL (3.82-4.97); Red Cell Distribution Width 18.3 % (11.5-14.5); White Blood Count 4.1 K/mcL (4.3-11.1)
[2019-12-06 06:39] LABS: BUN/Creatinine Ratio 26 (6-26); Blood Urea Nitrogen 15 mg/dL (8-23); Carbon Dioxide 28 mEq/L (23-29); Chloride 99 mEq/L (98-107); Glucose 180 mg/dL (70-105); Osmolality,Calculated 283 (280-300); Potassium 3.7 mEq/L (3.5-5.1); Sodium 134 mEq/L (136-145); eGFR For African Americans > 60 (> 60); eGFR For Non-African Americans > 60 (> 60)
[2019-12-06 07:18] LABS: Basophils # 0.3 K/mcL (0.0-0.2); Lymphocytes # 0.8 K/mcL (0.6-4.6); Monocytes # 0.7 K/mcL (0.0-1.3); Neutrophils # 2.2 K/mcL (1.6-8.9); Platelet Estimate Normal (Normal); Reactive Lymphocytes Present (Not Present)
[2019-12-06] MEDS ORDERED: Insulin LISPRO 300 UNITS/3 ML VIAL SQ SCH (07:30)
[2019-12-06 07:58] VITALS: BP 182/71
[2019-12-06] MEDS ORDERED: Fosfomycin Tromethamine 3 GM Packet PO ONE (08:15)
[2019-12-06] MEDS ORDERED: levoFLOXacin 500 MG TABLET PO ONE (08:18)
[2019-12-06] MEDS ORDERED: Cyanocobalamin (B-12) 1,000 MCG TABLET PO SCH (09:00)
[2019-12-06] MEDS ORDERED: amLODIPine 5 MG TABLET PO SCH (09:00)
[2019-12-06] MEDS ORDERED: (Omega-3 Fatty Acids [Fish Oil] 300 MG) PO SCH (09:00)
[2019-12-06] MEDS ORDERED: FERROUS GLUCONATE 324 MG PO SCH (09:00)
[2019-12-06] MEDS ORDERED: NON-FORMULARY MEDICATION 1 EACH EACH (Travoprost [Travatan Z] 1 DROP) BOTH EYES SCH (09:00)
[2019-12-08] MEDS ORDERED: Ergocalciferol (VIT D2) 50,000 UNIT (1.25MG) CAP PO SCH (09:00)
== END 2019-12-06 11:37 | disposition other institution (70) ==
LOC: EMEROOARM 13:41 → 3BNU 13:41 → SUATTDRO 17:48 → 3BNU 19:59
PROVIDERS: ADMIT Internal Medicine; ATTEND Internal Medicine

== ENCOUNTER 2019-12-07 12:09 | Observation (INO) ==
[2019-12-07 12:35] LABS: Basophils % 0.3 %; Eosinophils # 0.2 K/mcL (0.0-0.6); Eosinophils % 2.4 %; Hematocrit 35.1 % (35.3-44.9); Hemoglobin 10.8 g/dL (11.5-15.4); Immature Granulocytes % 0.7 % (0-4); Lymphocytes # 0.3 K/mcL (0.6-4.6); Lymphocytes % 4.6 %; Mean Corpuscular HGB Conc 30.8 g/dL (31.6-35.5); Mean Corpuscular Hemoglobin 25.2 pg (28.0-33.3); Monocytes # 0.9 K/mcL (0.0-1.3); Monocytes % 12.1 %; Neutrophils # 5.8 K/mcL (1.6-8.9); Platelet Count 254 K/mcL (140-400); Red Blood Count 4.28 M/mcL (3.82-4.97); Segmented Neutrophils % 79.9 %
[2019-12-07 12:38] LABS: White Blood Count 7.2 K/mcL (4.3-11.1)
[2019-12-07 12:38] LABS: Bilirubin,Urine Negative (Negative); Blood,Urine Negative (Negative); Clarity,Urine Clear (Clear); Color,Urine Yellow (Yellow); Glucose,Urine (UA) >=1000 mg/dL (Normal); Ketones,Urine Negative (Negative); Leukocyte Esterase,Urine Negative (Negative); Nitrite,Urine Negative (Negative); PH,Urine 5.5 pH Units (5.0-8.0); Protein,Urine Negative (Neg-Trace); Specific Gravity,Urine 1.023 (1.010-1.025); Urobilinogen,Urine Normal (Normal)
[2019-12-07 12:47] LABS: Amphetamine Screen,Urine Negative ng/mL (Cutoff=1000); Barbiturate Screen,Urine Negative ng/mL (Cutoff=200); Benzodiazepines Screen,Urine Negative ng/mL (Cutoff=200); Cannabinoid Screen,Urine Negative ng/mL (Cutoff = 50); Cocaine Screen,Urine Negative ng/mL (Cutoff= 300); Opiate Screen,Urine Negative ng/mL (Cutoff=300); Phencyclidine Screen,Urine Negative ng/mL (Cutoff=25)
[2019-12-07 12:57] LABS: Alanine Aminotransferase 81 Units/L (7-52); Albumin 4.1 g/dL (3.5-5.7); Albumin/Globulin Ratio 1.3 (1.1-2.2); Alkaline Phosphatase 100 Units/L (34-104); Aspartate Amino Transferase 109 Units/L (13-39); BUN/Creatinine Ratio 21 (6-26); Bilirubin,Direct 0.1 mg/dL (0.0-0.2); Bilirubin,Indirect 0.4 mg/dL (0.0-1.0); Bilirubin,Total 0.5 mg/dL (0.3-1.0); Blood Urea Nitrogen 14 mg/dL (8-23); Calcium 9.5 mg/dL (8.6-10.3); Carbon Dioxide 23 mEq/L (23-29); Chloride 94 mEq/L (98-107); Creatine Kinase 22 Units/L (30-223); Ethanol < 10 mg/dL (Less than 10); Globulin 3.1 g/dL (2.4-3.5); Glucose 257 mg/dL (70-105); Osmolality,Calculated 279 (280-300); Potassium 3.7 mEq/L (3.5-5.1); Sodium 130 mEq/L (136-145); Total Protein 7.2 g/dL (6.4-8.9); Troponin I < 0.03 ng/mL (< 0.04); eGFR For African Americans > 60 (> 60); eGFR For Non-African Americans > 60 (> 60)
[2019-12-07 13:11] LABS: VBG HCO3 25 mEq/L (21-27); VBG PCO2 34 mmHg (41-51); VBG PH 7.46 pH Units (7.32-7.42); VBG PO2 99 mmHg (25-50)
[2019-12-07 14:23] LABS: Hepatitis B Surface Antigen Nonreactive (Nonreactive)
[2019-12-07 14:52] LABS: Hepatitis B Core IgM Nonreactive (Nonreactive); Hepatitis C Virus Antibody Nonreactive (Nonreactive)
[2019-12-07 14:54] LABS: Hepatitis A Antibody IgM Nonreactive (Nonreactive)
[2019-12-07] MEDS ORDERED: Naloxone 0.4 MG/ML INJ IVP PRN (15:51)
[2019-12-07] MEDS: 0.9 % Sodium Chloride 1,000 ML IVC SCH (16:58)
[2019-12-07] MEDS ORDERED: Dextrose Gel 15 GM/37.5 ML TUBE PO PRN ×2 (17:16)
[2019-12-07] MEDS ORDERED: *HR* Dextrose 50 % in Water (Syg) 50 ML SYRINGE IVP PRN (17:16)
[2019-12-07] MEDS ORDERED: D5% in Water 1,000 ML IVC PRN (17:16)
[2019-12-07] MEDS ORDERED: Melatonin 3 MG TABLET PO PRN (17:22)
[2019-12-07] MEDS ORDERED: *HR* LORazepam 0.5 MG TABLET PO PRN (17:22)
[2019-12-07] MEDS ORDERED: Nitroglycerin 0.4 MG TAB.SUBL SL PRN (17:59)
[2019-12-07] MEDS: Insulin LISPRO 300 UNITS/3 ML VIAL SQ SCH (18:44)
[2019-12-07] MEDS: Amoxicillin 500 MG CAPSULE PO SCH (20:13)
[2019-12-07] MEDS ORDERED: Insulin LISPRO 300 UNITS/3 ML VIAL SQ SCH (21:00)
[2019-12-08 03:20] LABS: Basophils % 0.4 %; Eosinophils # 0.2 K/mcL (0.0-0.6); Eosinophils % 3.3 %; Hematocrit 30.8 % (35.3-44.9); Hemoglobin 9.9 g/dL (11.5-15.4); Immature Granulocytes % 0.4 % (0-4); Lymphocytes # 0.6 K/mcL (0.6-4.6); Lymphocytes % 10.3 %; Mean Corpuscular HGB Conc 32.1 g/dL (31.6-35.5); Mean Corpuscular Hemoglobin 26.2 pg (28.0-33.3); Mean Corpuscular Volume 81.5 fL (83.0-100.0); Mean Platelet Volume 9.3 fL (9.4-12.4); Monocytes # 0.9 K/mcL (0.0-1.3); Monocytes % 16.7 %; Neutrophils # 3.8 K/mcL (1.6-8.9); Platelet Count 238 K/mcL (140-400); Red Blood Count 3.78 M/mcL (3.82-4.97); Segmented Neutrophils % 68.9 %; White Blood Count 5.5 K/mcL (4.3-11.1)
[2019-12-08 03:31] LABS: Alanine Aminotransferase 75 Units/L (7-52); Albumin 3.6 g/dL (3.5-5.7); Albumin/Globulin Ratio 1.2 (1.1-2.2); Alkaline Phosphatase 94 Units/L (34-104); Aspartate Amino Transferase 60 Units/L (13-39); BUN/Creatinine Ratio 20 (6-26); Bilirubin,Total 0.4 mg/dL (0.3-1.0); Blood Urea Nitrogen 11 mg/dL (8-23); Carbon Dioxide 27 mEq/L (23-29); Chloride 95 mEq/L (98-107); Glucose 207 mg/dL (70-105); Osmolality,Calculated 281 (280-300); Potassium 3.3 mEq/L (3.5-5.1); Sodium 133 mEq/L (136-145); Total Protein 6.6 g/dL (6.4-8.9); eGFR For African Americans > 60 (> 60); eGFR For Non-African Americans > 60 (> 60)
[2019-12-08] MEDS: Amoxicillin 500 MG CAPSULE PO SCH ×2 (03:36→10:15)
[2019-12-08] MEDS ORDERED: amLODIPine 5 MG TABLET PO STA (04:22)
[2019-12-08] MEDS: 0.9 % Sodium Chloride 1,000 ML IVC SCH (06:33)
[2019-12-08] MEDS: Insulin LISPRO 300 UNITS/3 ML VIAL SQ SCH ×2 (07:30→10:48)
[2019-12-08] MEDS ORDERED: Venlafaxine XR (24 HR) 37.5 MG CAP.ER.24H PO SCH (08:00)
[2019-12-08] MEDS ORDERED: amLODIPine 5 MG TABLET PO SCH (08:00)
[2019-12-08] MEDS ORDERED: Cyanocobalamin (B-12) 1,000 MCG TABLET PO SCH (09:00)
[2019-12-08 11:11] VITALS: BP 159/76
[2019-12-09] MEDS ORDERED: amLODIPine 5 MG TABLET PO SCH (08:00)
== END 2019-12-08 14:52 ==
LOC: EMEROOARM 12:09 → 3BNU 12:09
PROVIDERS: ADMIT Internal Medicine; ATTEND Internal Medicine

== ENCOUNTER 2020-05-03 15:59 | Observation (INO) ==
[2020-05-03 16:38] LABS: INR 0.9; Prothrombin Time 10.4 Seconds (9.4-12.1)
[2020-05-03 16:41] LABS: Activated Partial Thrombo Time 26.7 Seconds (26.0-36.0)
[2020-05-03 16:43] LABS: Basophils # 0.1 K/mcL (0.0-0.2); Basophils % 0.7 %; Eosinophils # 0.1 K/mcL (0.0-0.6); Eosinophils % 1.8 %; Hematocrit 35.7 % (35.3-44.9); Hemoglobin 11.6 g/dL (11.5-15.4); Immature Granulocytes % 0.8 % (0-4); Lymphocytes # 1.6 K/mcL (0.6-4.6); Mean Corpuscular HGB Conc 32.5 g/dL (31.6-35.5); Mean Corpuscular Volume 89.3 fL (83.0-100.0); Monocytes # 1.3 K/mcL (0.0-1.3); Monocytes % 16.3 %; Neutrophils # 4.6 K/mcL (1.6-8.9); Platelet Count 377 K/mcL (140-400); Red Cell Distribution Width 14.6 % (11.5-14.5); Segmented Neutrophils % 59.4 %; White Blood Count 7.7 K/mcL (4.3-11.1)
[2020-05-03] MEDS ORDERED: Morphine Sulfate 2 MG/ML SYRINGE IVP ONE (16:46)
[2020-05-03] MEDS ORDERED: Isovue-370 500 ML BOTTLE IVP ONE (16:46)
[2020-05-03] MEDS ORDERED: Ondansetron 4 MG/2 ML VIAL IVP ONE (16:47)
[2020-05-03 17:02] LABS: BUN/Creatinine Ratio 21 (6-26); Blood Urea Nitrogen 23 mg/dL (8-23); Calcium 9.2 mg/dL (8.6-10.3); Carbon Dioxide 19 mEq/L (23-29); Chloride 96 mEq/L (98-107); Glucose 259 mg/dL (70-105); Osmolality,Calculated 287 (280-300); Potassium 5.4 mEq/L (3.5-5.1); Sodium 132 mEq/L (136-145); Troponin I < 0.03 ng/mL (< 0.04); eGFR For African Americans 57 (> 60); eGFR For Non-African Americans 47 (> 60)
[2020-05-03 17:49] LABS: Bacteria,Urine Few per hpf (None-Few); Bilirubin,Urine Negative (Negative); Blood,Urine Moderate (Negative); Clarity,Urine Ex.Turbid (Clear); Color,Urine Yellow (Yellow); Glucose,Urine (UA) 200 mg/dL (Normal); Ketones,Urine Trace mg/dL (Negative); Leukocyte Esterase,Urine Large (Negative); Nitrite,Urine Negative (Negative); Protein,Urine 200 mg/dL (Neg-Trace); Specific Gravity,Urine 1.016 (1.010-1.025); Squamous Epithelial Cell,Urine Moderate per hpf (None-Few); Urobilinogen,Urine Normal (Normal); WBC,Urine TNTC per hpf (0-3)
[2020-05-03] MEDS ORDERED: cefTRIAXone 1,000 MG in Water for inj. (sterile) 10 ML IVP ONE (18:21)
[2020-05-03] MEDS ORDERED: 0.9 % Sodium Chloride 1,000 ML IVC ONE ×2 (18:22→20:24)
[2020-05-03] MEDS ORDERED: Ondansetron 4 MG/2 ML VIAL IVP PRN (19:33)
[2020-05-03] MEDS ORDERED: Naloxone 0.4 MG/ML INJ IVP PRN (19:33)
[2020-05-03] MEDS ORDERED: 0.9 % Sodium Chloride 250 ML IVC ONE (20:24)
[2020-05-03] MEDS ORDERED: Sennosides 8.6 MG TABLET PO PRN (20:25)
[2020-05-03] MEDS ORDERED: 0.9 % Sodium Chloride 1,000 ML IVC SCH (20:30)
[2020-05-04 02:26] LABS: Basophils % 0.4 %; Eosinophils # 0.1 K/mcL (0.0-0.6); Hematocrit 35.3 % (35.3-44.9); Hemoglobin 11.4 g/dL (11.5-15.4); Immature Granulocytes % 0.5 % (0-4); Lymphocytes # 0.7 K/mcL (0.6-4.6); Lymphocytes % 8.8 %; Mean Corpuscular HGB Conc 32.3 g/dL (31.6-35.5); Mean Corpuscular Hemoglobin 29.5 pg (28.0-33.3); Mean Corpuscular Volume 91.2 fL (83.0-100.0); Monocytes % 12.4 %; Neutrophils # 6.5 K/mcL (1.6-8.9); Platelet Count 312 K/mcL (140-400); Red Blood Count 3.87 M/mcL (3.82-4.97); Red Cell Distribution Width 14.5 % (11.5-14.5); Segmented Neutrophils % 76.9 %; White Blood Count 8.4 K/mcL (4.3-11.1)
[2020-05-04 02:53] LABS: Alanine Aminotransferase 10 Units/L (7-52); Albumin 4.1 g/dL (3.5-5.7); Albumin/Globulin Ratio 1.6 (1.1-2.2); Alkaline Phosphatase 72 Units/L (34-104); Aspartate Amino Transferase 10 Units/L (13-39); BUN/Creatinine Ratio 21 (6-26); Bilirubin,Total 0.3 mg/dL (0.3-1.0); Blood Urea Nitrogen 15 mg/dL (8-23); Calcium 8.7 mg/dL (8.6-10.3); Carbon Dioxide 24 mEq/L (23-29); Chloride 99 mEq/L (98-107); Globulin 2.6 g/dL (2.4-3.5); Glucose 297 mg/dL (70-105); Osmolality,Calculated 292 (280-300); Potassium 4.2 mEq/L (3.5-5.1); Sodium 135 mEq/L (136-145); Total Protein 6.7 g/dL (6.4-8.9); Troponin I < 0.03 ng/mL (< 0.04); eGFR For African Americans > 60 (> 60); eGFR For Non-African Americans > 60 (> 60)
[2020-05-04] MEDS ORDERED: Acetaminophen 325 MG TABLET PO PRN (05:33)
[2020-05-04] MEDS ORDERED: (Melatonin 1 MG) PO PRN (05:33)
[2020-05-04] MEDS ORDERED: *HR* Dextrose 50 % in Water (Vial) 50 ML VIAL IVP PRN (05:34)
[2020-05-04] MEDS ORDERED: D5% in Water 1,000 ML IVC PRN (05:34)
[2020-05-04] MEDS ORDERED: Dextrose Gel 15 GM/37.5 ML TUBE PO PRN ×2 (05:34)
[2020-05-04] MEDS ORDERED: polyethylene glycoL 3350 17 GM POWD.PACK PO PRN (06:09)
[2020-05-04] MEDS ORDERED: Regadenoson 0.4 MG/5 ML SYRINGE IVP ONE (06:20)
[2020-05-04] MEDS: *HR* Heparin 5,000 UNIT/ML VIAL SQ SCH ×3 (06:37→21:20)
[2020-05-04] MEDS ORDERED: Insulin LISPRO 300 UNITS/3 ML VIAL SQ SCH (08:00)
[2020-05-04] MEDS ORDERED: Cholecalciferol (D-3) 1,000 UNIT (25MCG) TABLET PO SCH (09:00)
[2020-05-04] MEDS: Cyanocobalamin (B-12) 1,000 MCG TABLET PO SCH (10:03)
[2020-05-04] MEDS: lisinopriL 20 MG TABLET PO SCH (10:03)
[2020-05-04] MEDS: NIFEdipine XL (24 HR) 60 MG TAB.ER.24 PO SCH (10:03)
[2020-05-04] MEDS: (Omega-3 Fatty Acids [Fish Oil] 300 MG) PO SCH (10:04)
[2020-05-04] MEDS: Latanoprost 2.5 ML BOTTLE BOTH EYES SCH (10:07)
[2020-05-04 11:32] LABS: Adenovirus Not Detected (Not Detect); Bordetella Pertussis Not Detected (Not Detect); Chlamydophila pneumoniae Not Detected (Not Detect); Coronavirus 229E Not Detected (Not Detect); Coronavirus HKU1 Not Detected (Not Detect); Coronavirus NL63 Not Detected (Not Detect); Coronavirus OC43 Not Detected (Not Detect); Human Metapneumovirus Not Detected (Not Detect); Human Rhinovirus/Enterovirus Not Detected (Not Detect); Influenza A Subtype 2009 H1 Not Detected (Not Detect); Influenza B Not Detected (Not Detect); Mycoplasma pneumoniae Not Detected (Not Detect); Parainfluenza Virus 1 Not Detected (Not Detect); Parainfluenza Virus 2 Not Detected (Not Detect); Parainfluenza Virus 3 Not Detected (Not Detect); Parainfluenza Virus 4 Not Detected (Not Detect); Respiratory Syncytial Virus Not Detected (Not Detect)
[2020-05-04 11:34] LABS: SARS-CoV-2 Not Detected (Not Detect)
[2020-05-04] MEDS: Cholecalciferol (D-3) 1,000 UNIT (25MCG) TABLET PO SCH (13:52)
[2020-05-04] MEDS: Sennosides/Docusate Sodium TABLET PO SCH ×2 (14:01→21:16)
[2020-05-04] MEDS: polyethylene glycoL 3350 17 GM POWD.PACK PO SCH (14:01)
[2020-05-04] MEDS: cefTRIAXone 1,000 MG in Water for inj. (sterile) 10 ML IVP SCH (17:11)
[2020-05-04] MEDS: Insulin LISPRO 300 UNITS/3 ML VIAL SQ SCH ×2 (17:17→21:18)
[2020-05-05 02:11] LABS: Basophils % 0.5 %; Eosinophils # 0.1 K/mcL (0.0-0.6); Eosinophils % 2.1 %; Hematocrit 35.7 % (35.3-44.9); Hemoglobin 11.5 g/dL (11.5-15.4); Immature Granulocytes % 0.8 % (0-4); Lymphocytes # 1.4 K/mcL (0.6-4.6); Lymphocytes % 23.3 %; Mean Corpuscular HGB Conc 32.2 g/dL (31.6-35.5); Mean Corpuscular Hemoglobin 29.7 pg (28.0-33.3); Mean Corpuscular Volume 92.2 fL (83.0-100.0); Mean Platelet Volume 9.2 fL (9.4-12.4); Monocytes % 16.3 %; Neutrophils # 3.5 K/mcL (1.6-8.9); Platelet Count 332 K/mcL (140-400); Red Blood Count 3.87 M/mcL (3.82-4.97); Red Cell Distribution Width 14.8 % (11.5-14.5); White Blood Count 6.1 K/mcL (4.3-11.1)
[2020-05-05 02:30] LABS: BUN/Creatinine Ratio 20 (6-26); Blood Urea Nitrogen 17 mg/dL (8-23); Calcium 9.2 mg/dL (8.6-10.3); Carbon Dioxide 28 mEq/L (23-29); Chloride 100 mEq/L (98-107); Glucose 150 mg/dL (70-105); Magnesium 1.8 mg/dL (1.6-2.6); Osmolality,Calculated 292 (280-300); Phosphorous 3.9 mg/dL (2.7-4.5); Sodium 139 mEq/L (136-145); eGFR For African Americans > 60 (> 60); eGFR For Non-African Americans > 60 (> 60)
[2020-05-05] MEDS: *HR* Heparin 5,000 UNIT/ML VIAL SQ SCH ×3 (05:42→22:29)
[2020-05-05] MEDS: (Omega-3 Fatty Acids [Fish Oil] 300 MG) PO SCH (10:25)
[2020-05-05] MEDS: polyethylene glycoL 3350 17 GM POWD.PACK PO SCH (10:33)
[2020-05-05] MEDS: NIFEdipine XL (24 HR) 60 MG TAB.ER.24 PO SCH (10:33)
[2020-05-05] MEDS: lisinopriL 20 MG TABLET PO SCH (10:33)
[2020-05-05] MEDS: Sennosides/Docusate Sodium TABLET PO SCH ×2 (10:33→22:29)
[2020-05-05] MEDS: Cyanocobalamin (B-12) 1,000 MCG TABLET PO SCH (10:33)
[2020-05-05] MEDS: Cholecalciferol (D-3) 1,000 UNIT (25MCG) TABLET PO SCH (10:33)
[2020-05-05] MEDS: Insulin LISPRO 300 UNITS/3 ML VIAL SQ SCH ×4 (10:35→22:29)
[2020-05-05] MEDS: Latanoprost 2.5 ML BOTTLE BOTH EYES SCH (10:37)
[2020-05-05] MEDS ORDERED: 0.9 % Sodium Chloride 1,000 ML IVC SCH (12:45)
[2020-05-05] MEDS: cefTRIAXone 1,000 MG in Water for inj. (sterile) 10 ML IVP SCH (18:50)
[2020-05-06] MEDS: *HR* Heparin 5,000 UNIT/ML VIAL SQ SCH ×3 (05:53→20:24)
[2020-05-06] MEDS: Insulin LISPRO 300 UNITS/3 ML VIAL SQ SCH ×4 (10:12→20:25)
[2020-05-06] MEDS: polyethylene glycoL 3350 17 GM POWD.PACK PO SCH (10:12)
[2020-05-06] MEDS: Cyanocobalamin (B-12) 1,000 MCG TABLET PO SCH (10:13)
[2020-05-06] MEDS: NIFEdipine XL (24 HR) 60 MG TAB.ER.24 PO SCH (10:13)
[2020-05-06] MEDS: Sennosides/Docusate Sodium TABLET PO SCH ×2 (10:13→20:25)
[2020-05-06] MEDS: lisinopriL 20 MG TABLET PO SCH (10:13)
[2020-05-06] MEDS: Cholecalciferol (D-3) 1,000 UNIT (25MCG) TABLET PO SCH (10:13)
[2020-05-06] MEDS: (Omega-3 Fatty Acids [Fish Oil] 300 MG) PO SCH (10:14)
[2020-05-06] MEDS: Latanoprost 2.5 ML BOTTLE BOTH EYES SCH (10:14)
[2020-05-06 12:54] LABS: Basophils # 0.1 K/mcL (0.0-0.2); Basophils % 0.9 %; Eosinophils # 0.1 K/mcL (0.0-0.6); Hematocrit 37.9 % (35.3-44.9); Hemoglobin 12.3 g/dL (11.5-15.4); Immature Granulocytes % 0.7 % (0-4); Lymphocytes % 19.1 %; Mean Corpuscular HGB Conc 32.5 g/dL (31.6-35.5); Mean Corpuscular Hemoglobin 28.7 pg (28.0-33.3); Mean Corpuscular Volume 88.6 fL (83.0-100.0); Mean Platelet Volume 8.8 fL (9.4-12.4); Monocytes # 0.8 K/mcL (0.0-1.3); Monocytes % 15.2 %; Neutrophils # 3.4 K/mcL (1.6-8.9); Platelet Count 353 K/mcL (140-400); Red Blood Count 4.28 M/mcL (3.82-4.97); Red Cell Distribution Width 14.1 % (11.5-14.5); Segmented Neutrophils % 62.1 %; White Blood Count 5.4 K/mcL (4.3-11.1)
[2020-05-06 13:11] LABS: Alanine Aminotransferase 13 Units/L (7-52); Albumin 4.1 g/dL (3.5-5.7); Albumin/Globulin Ratio 1.2 (1.1-2.2); Alkaline Phosphatase 74 Units/L (34-104); Aspartate Amino Transferase 11 Units/L (13-39); BUN/Creatinine Ratio 21 (6-26); Bilirubin,Total 0.3 mg/dL (0.3-1.0); Blood Urea Nitrogen 18 mg/dL (8-23); Calcium 10.2 mg/dL (8.6-10.3); Carbon Dioxide 25 mEq/L (23-29); Chloride 96 mEq/L (98-107); Globulin 3.3 g/dL (2.4-3.5); Glucose 259 mg/dL (70-105); Lipase 13 Units/L (11-82); Osmolality,Calculated 285 (280-300); Potassium 4.1 mEq/L (3.5-5.1); Sodium 132 mEq/L (136-145); Total Protein 7.4 g/dL (6.4-8.9); eGFR For African Americans > 60 (> 60); eGFR For Non-African Americans > 60 (> 60)
[2020-05-06] MEDS ORDERED: Insulin DETEMIR 100 UNIT/ML X5UNITS SQ ONE (13:29)
[2020-05-06] MEDS ORDERED: 0.9 % Sodium Chloride 1,000 ML IVC SCH (15:30)
[2020-05-06] MEDS: Cefdinir 300 MG CAPSULE PO SCH (20:25)
[2020-05-06] MEDS ORDERED: *HR* Metoprolol 5 MG/5 ML VIAL IVP ONE (23:14)
[2020-05-07] MEDS ORDERED: *HR* Labetalol 20 MG/4 ML SYRINGE IVP ONE (00:51)
[2020-05-07] MEDS: *HR* Heparin 5,000 UNIT/ML VIAL SQ SCH ×2 (05:55→15:07)
[2020-05-07] MEDS: Cefdinir 300 MG CAPSULE PO SCH (08:30)
[2020-05-07] MEDS: Cyanocobalamin (B-12) 1,000 MCG TABLET PO SCH (08:30)
[2020-05-07] MEDS: Sennosides/Docusate Sodium TABLET PO SCH (08:31)
[2020-05-07] MEDS: NIFEdipine XL (24 HR) 60 MG TAB.ER.24 PO SCH (08:31)
[2020-05-07] MEDS: lisinopriL 20 MG TABLET PO SCH (08:31)
[2020-05-07] MEDS: Cholecalciferol (D-3) 1,000 UNIT (25MCG) TABLET PO SCH (08:32)
[2020-05-07] MEDS: Insulin LISPRO 300 UNITS/3 ML VIAL SQ SCH ×3 (08:35→15:46)
[2020-05-07] MEDS: (Omega-3 Fatty Acids [Fish Oil] 300 MG) PO SCH (08:35)
[2020-05-07] MEDS: Latanoprost 2.5 ML BOTTLE BOTH EYES SCH (08:36)
[2020-05-07] MEDS: polyethylene glycoL 3350 17 GM POWD.PACK PO SCH (08:45)
[2020-05-07 11:06] VITALS: BP 147/69
[2020-05-07] MEDS ORDERED: Insulin DETEMIR 100 UNIT/ML X5UNITS SQ ONE (11:24)
[2020-05-07] MEDS ORDERED: Melatonin 3 MG TABLET PO PRN (15:15)
[2020-05-19] MEDS ORDERED: Cyanocobalamin (B-12) 1,000 MCG/ML VIAL IM SCH (09:00)
== END 2020-05-07 18:59 | disposition home health service (06) ==
LOC: 3BNU 15:59 → EMEROOARM 15:59 → SUATTDRO 19:36 → 3BNU 21:01
PROVIDERS: ADMIT Family Medicine; ATTEND Student in an Organized Health Care Education/Training Program

== ENCOUNTER 2020-11-02 14:36 | Inpatient (IN) ==
[2020-11-02] MEDS ORDERED: 0.9 % Sodium Chloride 500 ML IVC ONE ×2 (15:27→16:20)
[2020-11-02] MEDS ORDERED: *HR* Heparin 5,000 UNIT/ML VIAL ONE (15:30)
[2020-11-02] MEDS ORDERED: *HR* Ticagrelor 90 MG TABLET ONE (15:30)
[2020-11-02] MEDS ORDERED: 0.9 % Sodium Chloride 1,000 ML ONE (15:30)
[2020-11-02] MEDS ORDERED: Heparin 1,000 UNITS/500 mL 0 ML ONE (15:30)
[2020-11-02] MEDS ORDERED: Aspirin 81 MG TAB.CHEW ONE (15:30)
[2020-11-02] MEDS ORDERED: *HR* Heparin 10,000 UNIT/10 ML VIAL ONE (15:30)
[2020-11-02] MEDS ORDERED: Nitroglycerin 1,000 MCG/10 ML VIAL IV ONE (15:31)
[2020-11-02] MEDS ORDERED: ISOVUE-370 200 ML INFUS..BTL ONE (15:31)
[2020-11-02] MEDS ORDERED: Tirofiban 12.5 MG/250ML 0 MG/0 ML BAG ONE (15:41)
[2020-11-02 15:50] LABS: Bacteria,Urine Few per hpf (None-Few); Bilirubin,Urine Negative (Negative); Blood,Urine Negative (Negative); Clarity,Urine Clear (Clear); Color,Urine Light-Yellow (Yellow); Glucose,Urine (UA) 100 mg/dL (Normal); Ketones,Urine Negative (Negative); Leukocyte Esterase,Urine Negative (Negative); Nitrite,Urine Negative (Negative); Protein,Urine Negative (Neg-Trace); Specific Gravity,Urine 1.012 (1.010-1.025); Squamous Epithelial Cell,Urine Few per hpf (None-Few); Urobilinogen,Urine Normal (Normal); WBC,Urine 0-3 per hpf (0-3)
[2020-11-02 15:55] LABS: Prothrombin Time 11.9 Seconds (9.4-12.1)
[2020-11-02 15:57] LABS: Activated Partial Thrombo Time 23.8 Seconds (26.0-36.0)
[2020-11-02 16:00] LABS: Basophils % 0.6 %; Eosinophils # 0.2 K/mcL (0.0-0.6); Eosinophils % 2.8 %; Hematocrit 35.4 % (35.3-44.9); Hemoglobin 11.3 g/dL (11.5-15.4); Immature Granulocytes % 2.4 % (0-4); Lymphocytes # 0.9 K/mcL (0.6-4.6); Lymphocytes % 16.9 %; Mean Corpuscular HGB Conc 31.9 g/dL (31.6-35.5); Mean Corpuscular Hemoglobin 29.7 pg (28.0-33.3); Mean Corpuscular Volume 93.2 fL (83.0-100.0); Mean Platelet Volume 9.4 fL (9.4-12.4); Monocytes # 0.7 K/mcL (0.0-1.3); Neutrophils # 3.6 K/mcL (1.6-8.9); Platelet Count 238 K/mcL (140-400); Red Cell Distribution Width 12.6 % (11.5-14.5); Segmented Neutrophils % 65.3 %; White Blood Count 5.4 K/mcL (4.3-11.1)
[2020-11-02 16:19] LABS: BUN/Creatinine Ratio 23 (6-26); Blood Urea Nitrogen 21 mg/dL (8-23); Calcium 9.8 mg/dL (8.6-10.3); Carbon Dioxide 21 mEq/L (23-29); Chloride 101 mEq/L (98-107); Glucose 299 mg/dL (70-105); Magnesium 1.1 mg/dL (1.6-2.6); Osmolality,Calculated 290 (280-300); Potassium 4.5 mEq/L (3.5-5.1); Sodium 133 mEq/L (136-145); Troponin I 0.06 ng/mL (< 0.04); eGFR For African Americans > 60 (> 60); eGFR For Non-African Americans 57 (> 60)
[2020-11-02] MEDS ORDERED: Magnesium Oxide 400 MG TABLET PO ONE (16:21)
[2020-11-02] MEDS ORDERED: *HR* Heparin 5,000 UNIT/ML VIAL IVP PRN (16:32)
[2020-11-02] MEDS ORDERED: Aspirin 81 MG TAB.CHEW PO STA (16:32)
[2020-11-02] MEDS ORDERED: *HR* Heparin 5,000 UNIT/ML VIAL IVP ONE (16:32)
[2020-11-02 16:40] LABS: Heparin anti-factor XA UFH < 0.04 IU/mL (0.30-0.70)
[2020-11-02] MEDS ORDERED: Piperacillin/Tazobactam 3.375 GM in 0.9 % Sodium Chloride Mini Bag 100 ML IVPB ONE (16:46)
[2020-11-02] MEDS: Heparin 25,000UNIT/250ML 1/2NS 25,000 UNIT/250 ML IV.SOLN IVC SCH (17:30)
[2020-11-02] MEDS ORDERED: Naloxone 0.4 MG/ML INJ IVP PRN (17:56)
[2020-11-02] MEDS ORDERED: *HR* Dextrose 50 % in Water (Vial) 50 ML VIAL IVP PRN (17:59)
[2020-11-02] MEDS ORDERED: D5% in Water 1,000 ML IVC PRN (17:59)
[2020-11-02] MEDS ORDERED: Dextrose Gel 15 GM/37.5 ML TUBE PO PRN ×2 (17:59)
[2020-11-02] MEDS ORDERED: 0.9 % Sodium Chloride 500 ML IVC SCH (18:00)
[2020-11-02] MEDS: Insulin LISPRO 300 UNITS/3 ML VIAL SUBQ SCH (20:08)
[2020-11-02] MEDS: Isosorbide MONOnitrate (24 HR) 30 MG TAB.ER.24H PO SCH (20:11)
[2020-11-03] MEDS: Insulin LISPRO 300 UNITS/3 ML VIAL SUBQ SCH ×5 (00:52→20:16)
[2020-11-03] MEDS: *HR* Heparin 5,000 UNIT/ML VIAL IVP PRN ×2 (01:00→13:58)
[2020-11-03] MEDS ORDERED: Piperacillin/Tazobactam 3.375 GM in 0.9 % Sodium Chloride Mini Bag 100 ML IVPB ONE (02:00)
[2020-11-03 04:32] LABS: Basophils % 0.8 %; Eosinophils # 0.3 K/mcL (0.0-0.6); Eosinophils % 4.9 %; Hematocrit 29.4 % (35.3-44.9); Immature Granulocytes % 2.1 % (0-4); Lymphocytes # 1.1 K/mcL (0.6-4.6); Lymphocytes % 20.9 %; Mean Corpuscular HGB Conc 32.3 g/dL (31.6-35.5); Mean Corpuscular Hemoglobin 29.6 pg (28.0-33.3); Mean Corpuscular Volume 91.6 fL (83.0-100.0); Mean Platelet Volume 9.5 fL (9.4-12.4); Monocytes # 0.7 K/mcL (0.0-1.3); Monocytes % 13.6 %; Neutrophils # 3.1 K/mcL (1.6-8.9); Platelet Count 250 K/mcL (140-400); Red Blood Count 3.21 M/mcL (3.82-4.97); Red Cell Distribution Width 12.5 % (11.5-14.5); Segmented Neutrophils % 57.7 %; White Blood Count 5.3 K/mcL (4.3-11.1)
[2020-11-03 04:48] LABS: BUN/Creatinine Ratio 20 (6-26); Blood Urea Nitrogen 13 mg/dL (8-23); Calcium 8.9 mg/dL (8.6-10.3); Carbon Dioxide 23 mEq/L (23-29); Chloride 105 mEq/L (98-107); Chol/HDL Ratio 5.1 (0-4.9); Cholesterol 144 mg/dL (< 200); Glucose 130 mg/dL (70-105); HDL Cholesterol 28 mg/dL (40-59); LDL Cholesterol,Calculated 85 mg/dL (< 100); Magnesium 1.1 mg/dL (1.6-2.6); Osmolality,Calculated 284 (280-300); Potassium 3.8 mEq/L (3.5-5.1); Sodium 136 mEq/L (136-145); Triglycerides 156 mg/dL (< 150); eGFR For African Americans > 60 (> 60); eGFR For Non-African Americans > 60 (> 60)
[2020-11-03 05:12] LABS: Hemoglobin 9.5 g/dL (11.5-15.4)
[2020-11-03] MEDS: Piperacillin/Tazobactam 3.375 GM in 0.9 % Sodium Chloride Mini Bag 100 ML IVPB SCH ×3 (08:50→23:38)
[2020-11-03] MEDS: Isosorbide MONOnitrate (24 HR) 30 MG TAB.ER.24H PO SCH (08:54)
[2020-11-03] MEDS: Aspirin 81 MG TAB.CHEW PO SCH (08:54)
[2020-11-03 09:33] LABS: Estimated Average Glucose 154 mg/dl
[2020-11-03] MEDS: (Brimonidine Tartrate/Timolol [Combigan 0.2%-0.5% Eye) OP SCH (19:39)
[2020-11-03] MEDS ORDERED: Melatonin 3 MG TABLET PO PRN (21:00)
[2020-11-03] MEDS ORDERED: (Travoprost [Travatan Z] 1 DROP) OP SCH (21:00)
[2020-11-03] MEDS: Heparin 25,000UNIT/250ML 1/2NS 25,000 UNIT/250 ML IV.SOLN IVC SCH (21:40)
[2020-11-04 03:06] LABS: Basophils % 0.9 %; Eosinophils # 0.2 K/mcL (0.0-0.6); Eosinophils % 3.8 %; Hematocrit 28.4 % (35.3-44.9); Hemoglobin 9.4 g/dL (11.5-15.4); Immature Granulocytes % 2.4 % (0-4); Lymphocytes # 1.1 K/mcL (0.6-4.6); Lymphocytes % 22.6 %; Mean Corpuscular HGB Conc 33.1 g/dL (31.6-35.5); Mean Corpuscular Hemoglobin 30.4 pg (28.0-33.3); Mean Corpuscular Volume 91.9 fL (83.0-100.0); Mean Platelet Volume 9.3 fL (9.4-12.4); Monocytes # 0.6 K/mcL (0.0-1.3); Monocytes % 12.2 %; Neutrophils # 2.7 K/mcL (1.6-8.9); Platelet Count 278 K/mcL (140-400); Red Blood Count 3.09 M/mcL (3.82-4.97); Red Cell Distribution Width 12.6 % (11.5-14.5); Segmented Neutrophils % 58.1 %; White Blood Count 4.7 K/mcL (4.3-11.1)
[2020-11-04 03:20] LABS: Alanine Aminotransferase 17 Units/L (7-52); Albumin 3.1 g/dL (3.5-5.7); Albumin/Globulin Ratio 1.3 (1.1-2.2); Alkaline Phosphatase 73 Units/L (34-104); Aspartate Amino Transferase 9 Units/L (13-39); BUN/Creatinine Ratio 18 (6-26); Bilirubin,Total 0.4 mg/dL (0.3-1.0); Blood Urea Nitrogen 13 mg/dL (8-23); Calcium 8.6 mg/dL (8.6-10.3); Carbon Dioxide 23 mEq/L (23-29); Chloride 105 mEq/L (98-107); Globulin 2.4 g/dL (2.4-3.5); Glucose 135 mg/dL (70-105); Osmolality,Calculated 290 (280-300); Potassium 3.5 mEq/L (3.5-5.1); Sodium 139 mEq/L (136-145); Total Protein 5.5 g/dL (6.4-8.9); eGFR For African Americans > 60 (> 60); eGFR For Non-African Americans > 60 (> 60)
[2020-11-04] MEDS: Piperacillin/Tazobactam 3.375 GM in 0.9 % Sodium Chloride Mini Bag 100 ML IVPB SCH ×3 (07:44→23:07)
[2020-11-04] MEDS: NIFEdipine XL (24 HR) 60 MG TAB.ER.24 PO SCH (07:47)
[2020-11-04] MEDS: Cyanocobalamin (B-12) 1,000 MCG TABLET PO SCH (07:48)
[2020-11-04] MEDS: Isosorbide MONOnitrate (24 HR) 30 MG TAB.ER.24H PO SCH (07:48)
[2020-11-04] MEDS: Aspirin 81 MG TAB.CHEW PO SCH (07:50)
[2020-11-04] MEDS: Insulin LISPRO 300 UNITS/3 ML VIAL SUBQ SCH ×4 (08:18→19:50)
[2020-11-04] MEDS: (Brimonidine Tartrate/Timolol [Combigan 0.2%-0.5% Eye) OP SCH (08:34)
[2020-11-04 11:00] LABS: Magnesium 1.8 mg/dL (1.6-2.6)
[2020-11-04] MEDS: Heparin 25,000UNIT/250ML 1/2NS 25,000 UNIT/250 ML IV.SOLN IVC SCH (13:43)
[2020-11-04] MEDS: lisinopriL 20 MG TABLET PO SCH (16:05)
[2020-11-04] MEDS ORDERED: Latanoprost 2.5 ML BOTTLE BOTH EYES SCH (21:00)
[2020-11-04] MEDS ORDERED: Insulin DETEMIR 100 UNIT/ML X5UNITS SUBQ SCH ×2 (21:00)
[2020-11-05 03:47] LABS: Basophils # 0.1 K/mcL (0.0-0.2); Basophils % 0.9 %; Eosinophils # 0.1 K/mcL (0.0-0.6); Eosinophils % 2.3 %; Hematocrit 32.4 % (35.3-44.9); Hemoglobin 10.8 g/dL (11.5-15.4); Immature Granulocytes % 2.1 % (0-4); Lymphocytes # 1.4 K/mcL (0.6-4.6); Lymphocytes % 24.2 %; Mean Corpuscular HGB Conc 33.3 g/dL (31.6-35.5); Mean Corpuscular Hemoglobin 29.9 pg (28.0-33.3); Mean Corpuscular Volume 89.8 fL (83.0-100.0); Mean Platelet Volume 9.2 fL (9.4-12.4); Monocytes # 0.8 K/mcL (0.0-1.3); Monocytes % 13.6 %; Neutrophils # 3.3 K/mcL (1.6-8.9); Platelet Count 316 K/mcL (140-400); Red Blood Count 3.61 M/mcL (3.82-4.97); Red Cell Distribution Width 12.2 % (11.5-14.5); Segmented Neutrophils % 56.9 %; White Blood Count 5.8 K/mcL (4.3-11.1)
[2020-11-05 04:04] LABS: Alanine Aminotransferase 15 Units/L (7-52); Albumin 3.4 g/dL (3.5-5.7); Albumin/Globulin Ratio 1.2 (1.1-2.2); Alkaline Phosphatase 73 Units/L (34-104); Aspartate Amino Transferase 11 Units/L (13-39); BUN/Creatinine Ratio 14 (6-26); Bilirubin,Total 0.3 mg/dL (0.3-1.0); Blood Urea Nitrogen 12 mg/dL (8-23); Calcium 9.4 mg/dL (8.6-10.3); Carbon Dioxide 27 mEq/L (23-29); Chloride 101 mEq/L (98-107); Globulin 2.8 g/dL (2.4-3.5); Glucose 167 mg/dL (70-105); Magnesium 1.3 mg/dL (1.6-2.6); Osmolality,Calculated 288 (280-300); Potassium 3.6 mEq/L (3.5-5.1); Sodium 137 mEq/L (136-145); Total Protein 6.2 g/dL (6.4-8.9); eGFR For African Americans > 60 (> 60); eGFR For Non-African Americans > 60 (> 60)
[2020-11-05] MEDS: Insulin LISPRO 300 UNITS/3 ML VIAL SUBQ SCH ×3 (07:56→16:48)
[2020-11-05] MEDS: Piperacillin/Tazobactam 3.375 GM in 0.9 % Sodium Chloride Mini Bag 100 ML IVPB SCH (07:58)
[2020-11-05] MEDS: NIFEdipine XL (24 HR) 60 MG TAB.ER.24 PO SCH (08:00)
[2020-11-05] MEDS: Cyanocobalamin (B-12) 1,000 MCG TABLET PO SCH (08:01)
[2020-11-05] MEDS: Aspirin 81 MG TAB.CHEW PO SCH (08:01)
[2020-11-05] MEDS: Isosorbide MONOnitrate (24 HR) 30 MG TAB.ER.24H PO SCH (08:01)
[2020-11-05] MEDS: lisinopriL 20 MG TABLET PO SCH (08:01)
[2020-11-05 16:18] VITALS: BP 124/72
[2020-11-05] MEDS ORDERED: Doxycycline 100 MG CAPSULE PO SCH (21:00)
[2020-11-06] MEDS ORDERED: Venlafaxine XR (24 HR) 37.5 MG CAP.ER.24H PO SCH (09:00)
== END 2020-11-05 17:33 | disposition hospice, home (50) | DRG 280 ==
LOC: EMEROOARM 14:36 → 2ANU 14:36 → SUATTDRO 17:21 → 2ANU 18:30
PROVIDERS: ADMIT Student in an Organized Health Care Education/Training Program; ATTEND Family Medicine